=== PATIENT | male | born 1955 | race Caucasian/White ===

== ENCOUNTER 2016-10-24 12:55 | Inpatient (IN) ==
--- NOTE | 2016-10-23 20:38 | Discharge Summary ---
<Rama Cruz - Last Filed: 10/23/16 20:36> Date of Encounter: 10/23/16 - Discharge Diagnosis (1) Arthritis of right hip Priority: Primary Status: Acute (2) HTN (hypertension) Priority: Secondary Status: Chronic Qualifiers: Hypertension type: essential hypertension Qualified Code(s): I10 - Essential (primary) hypertension (3) HLD (hyperlipidemia) Priority: Secondary Status: Chronic Qualifiers: Hyperlipidemia type: unspecified Qualified Code(s): E78.5 - Hyperlipidemia , unspecified (4) BPH (benign prostatic hyperplasia) Priority: Secondary Status: Chronic Qualifiers: Prostatic enlargement morphology: unspecified morphology Lower urinary tract symptom presence: presence of symptoms unspecified Qualified Code(s): N40.0 - Benign prostatic hyperplasia without lower urinary tract symptoms - Discharge Medications Home Medications: DiphenhydraMINE [Benadryl] 50 mg PO HS PRN 05/27/15 [History] Lisinopril [Zestril] 10 mg PO HS 05/27/15 [History] Pravastatin Sodium [Pravachol] 40 mg PO HS 05/27/15 [History] Aspirin Enteric Coated [Aspirin EC] 325 mg PO DAILY #21 tablet. 10/23/16 [Rx] OxyCODONE Immed Rel [Roxicodone 5 MG] 5 - 10 mg PO Q6HR PRN #40 tablet 10/23/16 [Rx] Aspirin [Lo-Dose Aspirin EC] 81 mg PO HS 10/24/16 [History] Eletriptan HBr [Relpax] 20 mg PO DAILY PRN 10/24/16 [History] Hydrochlorothiazide [Microzide] 12.5 mg PO HS 10/24/16 [History] Allergies/Adverse Reactions: Allergies No Known Allergies Allergy (Verified 10/24/16 13:52) Primary care physician: Nighat David CNP - Patient Status Disposition: Home, Self-Care Condition: Good - Discharge Instructions Follow Up With: Nighat David CNP [Primary Care Provider] - - Hospital Course Hospital course: Mr. Bermudez is a 61 year old male - Time Spent with Patient Total time spent providing and/or coordinating discharge services: <Eben Ho - Last Filed: 10/25/16 06:46> Date of Encounter: 10/25/16 Time of Encounter: 06:45 - Discharge Diagnosis (1) HTN (hypertension) Status: Chronic Qualifiers: Hypertension type: essential hypertension Qualified Code(s): I10 - Essential (primary) hypertension (2) Arthritis of right hip Priority: Primary Status: Acute (3) HLD (hyperlipidemia) Priority: Secondary Status: Chronic Qualifiers: Hyperlipidemia type: unspecified Qualified Code(s): E78.5 - Hyperlipidemia , unspecified (4) BPH (benign prostatic hyperplasia) Priority: Secondary Status: Chronic Qualifiers: Prostatic enlargement morphology: unspecified morphology Lower urinary tract symptom presence: presence of symptoms unspecified Qualified Code(s): N40.0 - Benign prostatic hyperplasia without lower urinary tract symptoms Primary care physician: Nighat David CNP - Patient Status Functional capacity at discharge: uses cane/walker Overall status at discharge: patient is progressing back to baseline - Hospital Course Hospital course: Mr. Bermudez is a 61 year old male The patient had an uneventful postoperative course. They received antibiotics and physical therapy and were discharged in stable condition. There will follow -up in the office in 2 weeks. Aspirin DVT prophylaxis - Time Spent with Patient Total time spent providing and/or coordinating discharge services:
--- NOTE | 2016-10-24 13:16 | History & Physical Report ---
Date of Encounter: 10/24/16 Time of Encounter: 13:16 24 Hour HP Update - Instructions Instructions: If the History and Physical is less than 30 days old and was completed prior to A.M. admission and or procedure and has NOT been updated on calendar day of procedure please complete this update prior to performing procedure. - Update Patient reports changes in Medical Condition: No Changes in examination, assessment, or condition: No Changes in Medication: No Preop tests/diagnostics Reviewed: Yes Surgery Remains Indicated: Yes Consent for Planned Operative Procedure(s) Verified: Yes - Pre-Operative Checklist Preoperative Checklist Indicated: No Prophylactic Antibiotic Ordered: Yes Is VTE Prophylaxis Indicated?: Yes
[2016-10-24] MEDS ORDERED: Famotidine 20 MG/2 ML VIAL IVP ONE (13:23)
[2016-10-24] MEDS ORDERED: Gabapentin 300 MG CAPSULE PO ONE (13:24)
[2016-10-24] MEDS ORDERED: CeFAZolin Pre 2,000 MG/100 ML 2,000 MG/100 ML BAG IVPB ONE (13:24)
[2016-10-24] MEDS ORDERED: Ringers Solution, Lactated 1,000 ML IVC SCH ×2 (13:30→18:12)
[2016-10-24] MEDS ORDERED: *HR* FentaNYL (PF) 100 MCG/2 ML VIAL ONE ×3 (13:38→15:52)
[2016-10-24] MEDS ORDERED: *HR* Midazolam HCl 2 MG/2 ML VIAL ONE (13:39)
[2016-10-24] MEDS ORDERED: *HR* Propofol 200 MG/20 ML VIAL IVP ONE (13:39)
[2016-10-24] MEDS ORDERED: Dexamethasone 4 MG/ML VIAL ONE (13:40)
[2016-10-24] MEDS ORDERED: Ondansetron 4 MG/2 ML VIAL ONE (13:40)
[2016-10-24] MEDS ORDERED: *HR* Succinylcholine 200 MG/10 ML VIAL IVP ONE (13:40)
[2016-10-24] MEDS ORDERED: Lidocaine -MPF 2% 2 ML VIAL ONE ×2 (13:40→15:33)
--- NOTE | 2016-10-24 13:54 | Anesthesia Evaluation PreOp ---
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 10/23/16 [Rx] OxyCODONE Immed Rel [Roxicodone 5 MG] 5 - 10 mg PO Q6HR PRN #40 tablet 10/23/16 [Rx] Allergies No Known Allergies Allergy (Verified 10/24/16 13:52) - Meds/Allergy Pre-op Review Medications Reviewed: Yes Allergies Reviewed: Yes Beta Blockers on Current Med List: No Anesthesia Results - Labs Laboratory Tests 10/10/16 10/10/16 09:04 09:04 Hgb 14.2 Hct 41.1 Plt Count 202 Sodium 138 Potassium 4.0 BUN 15 Creatinine 0.83 - Imaging EKG: report reviewed (Sinus Tach Rt BBB) Anesthesia Exam O2 Sat Height 1.82 m Height 1.82 m Height 1.82 m Weight 111.811 kg Weight 111.811 kg Weight 111.811 kg O2 Sat by Pulse Oximetry 96 Vital Signs Temp Pulse Resp BP Pulse Ox 98.6 F 97 18 149/94 96 10/24/16 13:13 10/24/16 13:13 10/24/16 13:13 10/24/16 13:13 10/24/16 13:13 Height: 5'11 Weight: 246 lbs NPO (# of Hours): MN Pain Scale: 0 - HEENT Pupil (Motor): Pupils equal, EOMI Mallampati: II Teeth: Normal Oral Opening: Greater than 3 - TURBINE ASSEMBLER LOC: Oriented TURBINE ASSEMBLER Motor: Normal RUE, Normal LUE, Normal RLE, Normal LLE, Normal Face TURBINE ASSEMBLER Sensory: Normal: RUE, LUE, RLE, LLE, Face - Cardiac Rhythm: Regular Murmur: None JVD: No Carotid Bruit: No - Pulmonary Breath Sounds: bilateral Clear Respiratory Effort: Symmetrical Anesthesia Assess/Plan ASA Score: 2 Modified Farrah Scale for Level of Consciousness: Cooperative, oriented, and tranquil Anesthetic Plan: General, Regional Monitoring Plan: Standard Monitors Recovery Plan: PACU (Discussed GA and RA, agrees to proceed)
[2016-10-24] MEDS ORDERED: *HR* Promethazine 25 MG/ML VIAL IVP PRN (14:03)
--- NOTE | 2016-10-24 14:58 | Anesthesia Procedures ---
Date of Encounter: 10/24/16 Time of Encounter: 14:57 Procedures: Anesthesia - Nerve Block Procedure Date: 10/24/16 Time: 14:57 Allergies/Adv Reactions: nka Surgical Procedure: right ANGUS Checklist: Correct Patient Identifier, Correct procedure, History checked Correct side: Right Blood Thinner: No Monitor Applied: EKG, BP, Pulse Oximetry Supplemental Oxygen via Nasal Cannula (L/min): 2 Sedation: Versed (mg): 2 Sedation: Fentanyl (mcg): 100 Indication: Post Op Analgesia Pre-op Neuro Deficits: No Block Type: Other (fascia iliaca block) Catheter placed: No Sterile Technique: Yes Ultrasound used: Yes Anatomy identified: Yes Visual spread of Local: Yes Neuro Stimulation: No Blood on Needle Aspiration: No Smooth Injection of Local: Yes Pain with Injection of Local: No Prep: Chlorhexadine Needle: 22 x 50 mm Stimuplex Local: Other (0.25% bupivacaine) Volume (cc): 60 Number of Attempts: 1 Complications: None/effective block Vitals: Vital Signs/O2 Sat/Glucose, Most Recent Temp Pulse Resp BP Pulse Ox 98.6 F 87 16 121/66 96 10/24/16 14:48 10/24/16 14:49 10/24/16 14:49 10/24/16 14:49 10/24/16 14:49
--- NOTE | 2016-10-24 16:29 | Orthopedic Operative Note ---
Date of procedure: 10/24/16 Pre-op diagnosis: Right hip arthritis Post-op diagnosis: same Procedure: Procedure: Right Total Hip Replacment Estimated blood loss: 300 cc Hardware: Metal and polyethylene replacement. Biomet DM Cup: 54 G7 fin cup Femoral 14 size echo full profile lateralized stem Head: 0 head with Libby Procedural Notes: Grade 3 arthritic changes femoral head grade 4 arthritic changes acetabular socket. Operative procedure: The patient was brought to the operating room and placed on the operating room table. After general anesthesia was administered the patient was placed in the lateral decubitus position with the operative leg up. All pressure points were padded appropriately and the head was stabilized in the neutral position. The operative extremity was prepped and draped in the sterile surgical fashion patient received IV antibiotic prior to skin incision. A standard posterior approach is made to the operative hip, the incision was made through the skin and subcutaneous tissue hemostasis was obtained with Bovie cautery. Using careful sharp dissection the fascia was identified and incised exposing the external rotators. The external rotators were released off the greater trochanter and tagged with #2 FiberWire suture. The capsule was T'd open and the hip was brought into internal rotation. Patient noted to have grade 3 arthritic changes femoral head. The femoral neck cut was made at the appropriate level. An anterior capsulotomy was performed for the anterior retractor. Soft tissues removed from the acetabulum. Patient noted to have grade 4 arthritic changes acetabulum. Acetabulum was first reamed medially, and then reamed in 15 degrees of anteversion and 45 degrees off the horizontal. It was reamed up to the appropriate size 54 The appropriate-sized 54 acetabular cup was impacted in place in 15 degrees of anteversion and 45 degrees off the horizontal. This had good fit and fixation. The hip was brought back in to internal rotation and prepared with the picker box operator followed by the canal finder followed by broaching process in 20 degrees anteversion. It was broached up to the appropriate size 14 The femoral implant was impacted in place in 20 degrees of anteversion. Trial reduction found the hip to be stable with 0 head and Libby. The trials were removed and the real implants were impacted in place. The hip was reduced, patient had apparent equal leg lengths. The hip had excellent stability with forward flexion to 90 degrees adduction of 30 degrees and internal rotation of 60 degrees. The hip had no shuck. The hips after 2 minutes with a Betadine saline solution. It was irrigated out with 2 L of pulse irrigation. The external rotators were reattached to drill holes in the greater trochanter. Fascia was closed with a running #2 PDS suture. The deep tissue was irrigated and closed deep with #1 PDS suture superficially with 0 PDS suture and skin was closed with Dermabond and skin joey. The patient was placed in a sterile dressing and abduction pillow. The patient was extubated and transferred to the recovery room in stable condition. Anesthesia: KAL Surgeon: Eben Ho Distribution Superintendent: Rama Cruz Condition: stable Disposition: PACU
[2016-10-24] MEDS ORDERED: EPHEDrine 50 MG/ML VIAL ONE (16:33)
[2016-10-24] MEDS ORDERED: *HR* HYDROmorphone (PF) 1 MG/ML SYRINGE IVP PRN ×2 (16:44→18:12)
[2016-10-24] MEDS: *HR* HYDROmorphone (PF) 1 MG/ML SYRINGE IVP PRN ×3 (17:28→17:38)
[2016-10-24] MEDS ORDERED: *HR* Enoxaparin 30 MG/0.3 ML SYRINGE SQ SCH (18:00)
[2016-10-24] MEDS ORDERED: MOM Conc 10 ML UD.LIQ PO PRN (18:12)
[2016-10-24] MEDS ORDERED: Ondansetron 4 MG/2 ML VIAL IVP PRN (18:12)
[2016-10-24] MEDS ORDERED: *HR* OxyCODONE Immed Rel 5 MG TABLET PO PRN (18:12)
[2016-10-24] MEDS ORDERED: Sennosides 8.6 MG TABLET PO PRN (18:12)
[2016-10-24] MEDS ORDERED: Temazepam 15 MG CAPSULE PO PRN (18:12)
[2016-10-24] MEDS ORDERED: (Eletriptan Hbr [Relpax] 20 MG) PO PRN (18:12)
[2016-10-24] MEDS ORDERED: Naloxone 0.4 MG/ML INJ IVP PRN (18:12)
--- NOTE | 2016-10-24 19:00 | Anesthesia Evaluation Post Op ---
Date of Encounter: 10/24/16 Time of Encounter: 17:30 - Vital Signs Vital Signs: Vital Signs/O2 Sat/Glucose, Most Current Temp Pulse Resp BP Pulse Ox 10/24/16 17:36 85 18 154/95 98 10/24/16 17:26 97.1 F L 87 18 141/98 96 10/24/16 17:16 86 18 133/89 98 10/24/16 17:06 93 20 125/85 95 10/24/16 16:56 97.6 F 88 24 142/93 98 10/24/16 15:20 84 18 117/82 97 10/24/16 15:07 86 16 126/81 97 - Lungs Lungs: Clear Ascult./Percussion - Airway Airway: Non-obstructed - Cardiovascular Regular Rate - Mental Status Mental Status: Alert & Oriented, Answers Appropriately - Pain Pain Scale: 5 Pain Scale used: Numeric (1 - 10) - Nausea Vomiting Nausea Vomiting: Not Present - Hydration Hydration: Ice chips - Discharge PostOp Status: Transfer Patient to floor Anes Supervising Prov Stmt: Pt seen/evaluated, VSS and pt has met criteria for discharge to home. - MD Rahul
[2016-10-24 19:03] LABS: Hematocrit 40.1 % (37.5-50.1); Hemoglobin 13.2 g/dL (12.9-16.9)
[2016-10-24] MEDS: Ascorbic Acid 500 MG TABLET PO SCH (19:16)
[2016-10-24] MEDS: *HR* OxyCODONE Immed Rel 5 MG TABLET PO PRN ×2 (19:17→23:27)
[2016-10-24] MEDS: hydroCHLOROthiazide 25 MG TABLET PO SCH (22:15)
[2016-10-24] MEDS: Aspirin Enteric Coated 81 MG Tablet PO SCH (22:19)
[2016-10-24] MEDS: ceFAZolin 2,000 MG in D5% in Water 100 ML IVPB SCH (23:28)
[2016-10-25] MEDS: *HR* OxyCODONE Immed Rel 5 MG TABLET PO PRN ×4 (04:49→21:19)
[2016-10-25 05:51] LABS: Hematocrit 38.9 % (37.5-50.1); Hemoglobin 13.4 g/dL (12.9-16.9)
[2016-10-25 06:03] LABS: BUN/Creatinine Ratio 16 (6-26); Blood Urea Nitrogen 14 mg/dL (8-26); Carbon Dioxide 22 mEq/L (19-29); Chloride 100 mEq/L (98-109); Glucose 181 mg/dL (70-99); Osmolality,Calculated 279 (280-300); Potassium 4.4 mEq/L (3.5-4.5); Sodium 132 mEq/L (136-145); eGFR For African Americans > 60 (> 60); eGFR For Non-African Americans > 60 (> 60)
--- NOTE | 2016-10-25 06:47 | Orthopedics Progress Note ---
Date of Encounter: 10/25/16 Time of Encounter: 06:46 - Assessment and Plan (1) HTN (hypertension) Current Visit: Yes Status: Chronic Qualifiers: Hypertension type: essential hypertension Qualified Code(s): I10 - Essential (primary) hypertension (2) Arthritis of right hip Current Visit: Yes Status: Acute (3) HLD (hyperlipidemia) Current Visit: Yes Status: Chronic Qualifiers: Hyperlipidemia type: unspecified Qualified Code(s): E78.5 - Hyperlipidemia , unspecified (4) BPH (benign prostatic hyperplasia) Current Visit: Yes Status: Chronic Qualifiers: Prostatic enlargement morphology: unspecified morphology Lower urinary tract symptom presence: presence of symptoms unspecified Qualified Code(s): N40.0 - Benign prostatic hyperplasia without lower urinary tract symptoms Subjective Interval history: Patient was seen this morning doing well without complaints. Afebrile vital signs stable. Operative extremity: Neurovascularly intact Dressing clean dry and intact Calves nontender Assessment and plan: Continue with postoperative care Hematocrit 38 discharged today Objective Vital signs: Vital Signs Temp Pulse Resp BP Pulse Ox 10/25/16 04:57 99.2 F 106 16 132/84 95 10/24/16 23:05 98.8 F 101 18 154/97 97 10/24/16 20:35 98.3 F 102 18 140/92 97 10/24/16 19:35 98.7 F 100 14 141/92 98 10/24/16 19:05 98.3 F 94 16 147/94 97 10/24/16 18:34 98.8 F 89 16 155/95 95 10/24/16 17:57 97.7 F 91 18 155/97 98 10/24/16 17:46 88 20 146/98 98 10/24/16 17:36 85 18 154/95 98 10/24/16 17:26 97.1 F L 87 18 141/98 96 10/24/16 17:16 86 18 133/89 98 10/24/16 17:06 93 20 125/85 95 10/24/16 16:56 97.6 F 88 24 142/93 98 10/24/16 15:20 84 18 117/82 97 10/24/16 15:07 86 16 126/81 97 10/24/16 14:49 87 16 121/66 96 10/24/16 14:48 98.6 F 97 18 149/94 96 10/24/16 13:13 98.6 F 97 18 149/94 96 Intake and Output 10/24/16 10/24/16 10/25/16 15:59 23:59 07:59 Intake Total 160 / 160 100 / 100 Output Total 750 / 750 600 / 600 Balance -590 / -590 -500 / -500 Intake: IV Fluids 100 / 100 Ancef 2,000 MG In 100 / 100 Dextrose 5% 100 ML @ 200 mls/hr IVPB Q8HR DULCE Rx#: [id number] Oral 160 / 160 Output: Urine 450 / 450 600 / 600 Estimated Blood Loss 300 / 300 Other: # Voids 1 # Bowel Movements 0 Weight 111.811 kg - Labs CBC & BMP: 10/25/16 05:22 10/25/16 05:22 Labs: Abnormal lab results Sodium 132 mEq/L (136-145) L 10/25/16 05:22 Glucose 181 mg/dL (70-99) H 10/25/16 05:22 Calculated Osmolality 279 (280-300) L 10/25/16 05:22 - VTE Documentation of Mechanical Device: Venous foot pump, device Consult Discharge Plan - Plan Referrals: Nighat David, MARKETING SENIOR RECRUITER [Primary Care Provider] -
[2016-10-25] MEDS: Multivit/Ca/Min/Fe/FA 1 TAB TABLET PO SCH (09:02)
[2016-10-25] MEDS: Ascorbic Acid 500 MG TABLET PO SCH ×2 (09:02→16:54)
[2016-10-25] MEDS: ceFAZolin 2,000 MG in D5% in Water 100 ML IVPB SCH (10:46)
[2016-10-25] MEDS: *HR* Enoxaparin 30 MG/0.3 ML SYRINGE SQ SCH (16:55)
[2016-10-25] MEDS: hydroCHLOROthiazide 25 MG TABLET PO SCH (21:20)
[2016-10-25] MEDS: Aspirin Enteric Coated 81 MG Tablet PO SCH (21:20)
[2016-10-26] MEDS: *HR* OxyCODONE Immed Rel 5 MG TABLET PO PRN ×4 (02:01→20:02)
[2016-10-26 04:56] LABS: Hematocrit 36.1 % (37.5-50.1)
[2016-10-26 05:12] LABS: BUN/Creatinine Ratio 18 (6-26); Blood Urea Nitrogen 15 mg/dL (8-26); Calcium 8.9 mg/dL (8.6-10.8); Carbon Dioxide 24 mEq/L (19-29); Chloride 97 mEq/L (98-109); Glucose 146 mg/dL (70-99); Osmolality,Calculated 273 (280-300); Potassium 4.1 mEq/L (3.5-4.5); Sodium 130 mEq/L (136-145); eGFR For African Americans > 60 (> 60); eGFR For Non-African Americans > 60 (> 60)
[2016-10-26] MEDS: *HR* Enoxaparin 30 MG/0.3 ML SYRINGE SQ SCH ×2 (06:11→18:23)
--- NOTE | 2016-10-26 08:34 | Orthopedics Progress Note ---
Date of Encounter: 10/26/16 Time of Encounter: 08:33 - Assessment and Plan (1) HTN (hypertension) Current Visit: Yes Status: Chronic Qualifiers: Hypertension type: essential hypertension Qualified Code(s): I10 - Essential (primary) hypertension (2) Arthritis of right hip Current Visit: Yes Status: Acute (3) HLD (hyperlipidemia) Current Visit: Yes Status: Chronic Qualifiers: Hyperlipidemia type: unspecified Qualified Code(s): E78.5 - Hyperlipidemia , unspecified (4) BPH (benign prostatic hyperplasia) Current Visit: Yes Status: Chronic Qualifiers: Prostatic enlargement morphology: unspecified morphology Lower urinary tract symptom presence: presence of symptoms unspecified Qualified Code(s): N40.0 - Benign prostatic hyperplasia without lower urinary tract symptoms Subjective Interval history: Patient was seen this morning doing well without complaints. Afebrile vital signs stable. Operative extremity: Neurovascularly intact Dressing clean dry and intact Calves nontender Assessment and plan: Continue with postoperative care discharged today Objective Vital signs: Vital Signs Temp Pulse Resp BP Pulse Ox 10/26/16 07:18 99.1 F 112 16 125/82 95 10/26/16 05:40 99.6 F 10/25/16 23:11 99.9 F H 109 17 133/73 92 10/25/16 19:25 99.4 F 114 17 153/83 97 10/25/16 15:25 98.3 F 116 16 132/74 95 10/25/16 11:33 98.3 F 103 14 127/79 93 Intake and Output 10/25/16 10/26/16 10/26/16 23:59 07:59 15:59 Intake Total 1000 / 1000 Output Total 500 / 500 300 / 300 Balance 500 / 500 -300 / -300 Intake: IV Fluids 1000 / 1000 Output: Urine 500 / 500 300 / 300 - Labs CBC & BMP: 10/26/16 04:37 10/26/16 04:37 Labs: Abnormal lab results Hgb 12.0 g/dL (12.9-16.9) L 10/26/16 04:37 Hct 36.1 % (37.5-50.1) L 10/26/16 04:37 Sodium 130 mEq/L (136-145) L 10/26/16 04:37 Chloride 97 mEq/L (98-109) L 10/26/16 04:37 Glucose 146 mg/dL (70-99) H 10/26/16 04:37 Calculated Osmolality 273 (280-300) L 10/26/16 04:37 - VTE Documentation of Mechanical Device: Graduated compression elastic hosiery Consult Discharge Plan - Plan Additional Instructions: Discharge Instructions: Total Hip Replacement Please call [facility] ([phone]), your Primary Care Physician, or report to the Emergency Room if you have any of the following symptoms: Nausea, vomiting, fever greater that 101.5, swelling, chest pain, shortness of breath, increased pain/redness/drainage/odor for your incision site, numbness/ tingling, or any other concerning symptoms. ACTIVITY:Weight-bearing as tolerated for 8 weeks with hip dislocation precautions that physical therapy taught you. You may progress as tolerated under the guidance of your physical therapist. You do not need to sleep with a pillow between your legs. You can also seep on the operative side or on your stomach. MEDICATIONS: Upon discharge resume your home medications. Take all the medications as prescribed. Take a stool softener if taking narcotic pain medications. Stool softeners are only effective if you drink enough fluids. Drink 6-8 glass of water or fluids a day, unless this is not allowed for another health problem. Despite using stool softeners, if you haven't had a bowel movement in 3 days, please switch to a gentle laxative. Gentle laxatives are sold over the counter. You should have a bowel movement within 24 hours, if not call the office. You will be discharged from the hospital with a prescription for pain medication. You are encouraged to decrease the use of narcotic pain medication as tolerated. Should you require a refill, please call the office. [facility] prescribes narcotic pain medication for only 4-6 weeks after surgery. If you require pain medication beyond this time period, you may be referred to your Primary Care Physician or to the Pain Clinic for further evaluation. Plan ahead for refills on pain medication as many narcotics either need to be picked up at the office or mailed. It is best to call 48-72 hours in advance of needing a prescription refill so you don't run out of medication. To help control the post-operative pain, you may take NSAIDs (Aleve,Advil, Motrin, ibuprofen, naprosyn) or Tylenol as prescribed on the bottle in addition to the pain medication. ANTICOAGULATION (blood thinners): Continue your Aspirin, Lovenox or Coumadin as prescribed to help prevent a blood clot in the leg or in the lungs. As long as your incision remains dry and you tolerate the NSAIDs (Aleve, Advil, Motrin, Ibuprofen, Naprosyn), it is OK to use the NSAIDS while you are taking your anticoagulation medication. Should your incision start to drain, stop the NSAID and contact our office. Common symptoms of blood clot in the legs include: localized pain, swelling, calf tenderness, redness or discoloration of the skin. Blood clot in the lung symptoms include: shortness of breath, rapid pulse, sweating, and chest pain that worsens with deep breathing, coughing up blood, lightheadedness, feelings of anxiety. If you experience any of these symptoms notify your physician immediately, go to the emergency room, or if having trouble breathing, call 911. WOUND CARE: Leave the dressing on for 7 to 10days. You may change the dressing if it is saturated greater than 50%. Do not get the dressing wet at anytime. Wash your hands with antibacterial soap, rinse and dry prior to any wound care. If you have joey the visiting nurse or rehab facility can remove the stapes 10-14 days after surgery and place steri-strips across the wound. Leave the steri-strips in place until they fall off on their own. You may let water from the shower run on top of the steri-strips. If you do not have a visiting nurse or rehab facility, you will need to return to the office at 10-14 days for the joey to be removed. If you have itching or redness around the dressing call the office. FOLLOW-UP: Please follow up with your surgeon in the orthopedic clinic in 6 weeks from the day of surgery. If you have joey that need to be removed, you will need to come back to the office in 10-14 days from the day of surgery. Referrals: Nighat David, BRYCE [Primary Care Provider] -
[2016-10-26] MEDS: Multivit/Ca/Min/Fe/FA 1 TAB TABLET PO SCH (08:47)
[2016-10-26] MEDS: Ascorbic Acid 500 MG TABLET PO SCH ×2 (08:47→15:50)
--- NOTE | 2016-10-26 14:25 | Electrocardiograph Report ---
[place] [id number] Test Date: 2016-10-25 Pat Name: Christian Bermudez Department: 114 Room: [facility] Gender: M Director Surgical: : 1955 Requested By: Eben Ho Order Number: [id number] Reading MD: Prem Ohara MD Measurements Intervals Bradley Rate: 100 P: 42 NH: 161 QRS: -26 QRSD: 136 T: 9 QT: 352 QTc: 409 Interpretive Statements SINUS TACHYCARDIA BORDERLINE LEFT AXIS DEVIATION RBBB Electronically Signed On 10-26-2016 14:23:41 EDT by Prem Ohara MD
--- NOTE | 2016-10-26 15:13 | Cardiology Consult Note ---
<Boaz Cruz R - Last Filed: 10/26/16 15:10> Date of Encounter: 10/26/16 Time of Encounter: 15:10 Assessment and Plan (1) Sinus tachycardia Current Visit: Yes Status: Acute Sinus tach rate as high as 120 on bedside pusle ox. Pt not on telemetry, unable to review. Pt asymptomatic--denies dyspnea, chest pain or palpitations. In setting of post op hip replacement and low grade fever, temp as high as 99.9. Reviewed prior records--HR as high as 108 as outpt at PCP visit. EKGs reviewed--highest rate noted 113, Sinus tach. Will start pt on Toprol XL 25mg daily. Decrease Lisinopril to 5mg daily to allow BP room. Advised RN to put pt on telemetry until discharged. No further cardiac testing warranted as inpt. Anticipate sign off once seen and evaluated by Dr. Eaton. Will determine if follow-up with cardio is warranted or just PCP. (2) History of supraventricular tachycardia Current Visit: No Status: Resolved Pt reports hx of SVT s/p ablation in 2008. Reports LHC at that time without intervention. EKGs reviewed, no evidence of SVT, only sinus tach. Start low dose BB. Discussion w patient/family: The assessment and plan as outlined above was discussed with the patient and/or family members who expressed understanding and agreement. All questions were answered. Thank you for involving us in the care of your patient. Please call with any questions. I will discuss all the above with Dr. Eaton and make changes as necessary. History of Present Illness Consult date: 10/26/16 Requesting physician: Eben Ho Consult reason: sinus tachycardia Chief complaint: none History of present illness: Mr. Bermudez is a 61 year old male with PMH of HTN, SVT s/p ablation in 2008 at [facility] that presented to have hip replacement. He is post-op, now having sinus tachycardia with HR noted to be as high as 120 on vitals. However, pt is not on telemetry, so unable to review. EKGs reviewed. Highest HR on EKG 113. Pt reports HR at rest at home ~80. Reviewed past PCP visits and HR tends to be ~100 , highest 108 12/2015 at PCP visit. Pt denies palpitations, dizziness, lightheadedness, chest pain or dyspnea. Reports having LHC in 2008 at [facility] without significant blockages. Temp as high as 99.9. Reports episode of chills yesterday, none today. Past Med Surg Social Fam HX - Past Medical History Medical history: hyperlipidemia, hypertension, SVT Psychiatric history: no psych history - Past Surgical History Surgical History: vasectomy, other (ablation) - Social History Smoking Status: Never smoker Smokeless Tobacco Status: No Alcohol use: occasionally Drug use: none Medications and Allergies DiphenhydraMINE [Benadryl] 50 mg PO HS PRN 05/27/15 [History] Lisinopril [Zestril] 10 mg PO HS 05/27/15 [History] Pravastatin Sodium [Pravachol] 40 mg PO HS 05/27/15 [History] Aspirin Enteric Coated [Aspirin EC] 325 mg PO DAILY #21 tablet.dr 10/23/16 [Rx] OxyCODONE Immed Rel [Roxicodone 5 MG] 5 - 10 mg PO Q6HR PRN #40 tablet 10/23/16 [Rx] Aspirin [Lo-Dose Aspirin EC] 81 mg PO HS 10/24/16 [History] Eletriptan HBr [Relpax] 20 mg PO DAILY PRN 10/24/16 [History] Hydrochlorothiazide [Microzide] 12.5 mg PO HS 10/24/16 [History] Lisinopril [Zestril] 5 mg PO DAILY #30 tablet 10/26/16 [Rx] Metoprolol XL (24 HR) Succ [Toprol XL] 25 mg PO DAILY #30 tab.er.24h 10/26/16 [ Rx] Allergies No Known Allergies Allergy (Verified 10/24/16 13:52) All Systems Review: A 10-system review of systems was performed and is negative for pertinent findings except as documented above in the HPI. - Constitutional Constitutional: chills Physical Examination Vital Signs, Last 4 Hours Temp Pulse Resp BP Pulse Ox 10/26/16 15:01 99.1 F 112 14 127/78 95 Vital Signs Temp Pulse Resp BP Pulse Ox 10/26/16 15:01 99.1 F 112 14 127/78 95 10/26/16 11:03 98.7 F 112 14 136/79 96 10/26/16 07:18 99.1 F 112 16 125/82 95 10/26/16 05:40 99.6 F 10/25/16 23:11 99.9 F H 109 17 133/73 92 10/25/16 19:25 99.4 F 114 17 153/83 97 10/25/16 15:25 98.3 F 116 16 132/74 95 Intake and Output 10/25/16 10/26/16 10/26/16 23:59 07:59 15:59 Intake Total 1000 / 1000 Output Total 500 / 500 300 / 300 725 / 725 Balance 500 / 500 -300 / -300 -725 / -725 Intake: IV Fluids 1000 / 1000 Output: Urine 500 / 500 300 / 300 725 / 725 General: Conversant, No Apparent Distress HEENT: Atraumatic, Normocephaly, Mucus Membranes Moist Neck: No JVD, Normal carotid pulses Cardiac: Reg Rate and Rhythm, Normal S1 and S2, No Murmur Lungs: Normal Breath Sounds, No Wheeze, Rales, Rhonchi Neuro: Alert and responsive, No focal deficits noted Abdomen: Soft, Non-Tender Skin: No rashes noted on visualized skin Musculoskeletal: No Chest Wall Tenderness Extremities: No Clubbing, No Cyanosis, No Edema, Normal Pulses Results 10/26/16 04:37 10/26/16 04:37 Lab Results 10/26/16 10/26/16 04:37 04:37 Hgb 12.0 L Hct 36.1 L Sodium 130 L Potassium 4.1 Chloride 97 L Carbon Dioxide 24 BUN 15 Creatinine 0.83 Glucose 146 H Calcium 8.9 Short CBC 10/26/16 Range/Units 04:37 Hgb 12.0 L (12.9-16.9) g/dL Hct 36.1 L (37.5-50.1) % BMP 10/26/16 Range/Units 04:37 Sodium 130 L (136-145) mEq/L Potassium 4.1 (3.5-4.5) mEq/L Chloride 97 L (98-109) mEq/L Carbon Dioxide 24 (19-29) mEq/L BUN 15 (8-26) mg/dL Creatinine 0.83 (0.72-1.25) mg/dL Glucose 146 H (70-99) mg/dL Calcium 8.9 (8.6-10.8) mg/dL Active Medications Ascorbic Acid (Vitamin C) 500 mg PO BIDWM [facility] Stop: 04/25/17 18:13 Last Admin: 10/26/16 08:47 Dose: 500 mg Aspirin (Aspirin Ec) 81 mg PO HS [facility] Stop: 04/25/17 21:01 Last Admin: 10/25/16 21:20 Dose: 81 mg Diphenhydramine HCl (Benadryl) 50 mg PO HS PRN PRN Reason: Sleep Docusate Sodium (Colace) 100 mg PO BID [facility] PRN Reason: Protocol Stop: 04/25/17 21:01 Last Admin: 10/26/16 08:47 Dose: 100 mg Enoxaparin Sodium (Lovenox) 30 mg SQ Q12HR D[facility]CE PRN Reason: Protocol Stop: 04/25/17 18:01 Last Admin: 10/26/16 06:11 Dose: 30 mg Ferrous Sulfate (Ferrous Sulfate) 325 mg PO BIDWM [facility] Stop: 04/25/17 18:13 Last Admin: 10/26/16 08:47 Dose: 325 mg Hydrochlorothiazide (Hydrochlorothiazide) 12.5 mg PO HS [facility] Stop: 04/25/17 21:01 Last Admin: 10/25/16 21:20 Dose: 12.5 mg Hydromorphone HCl (Dilaudid) 1 mg IVP Q2H PRN PRN Reason: Moderate to Severe Pain Stop: 04/25/17 18:13 Last Admin: 10/25/16 01:54 Dose: 1 mg Lactated Ringer's (Lactated Ringers) 1,000 mls @ 75 mls/hr IVC .[id number] [facility] Stop: 04/25/17 18:13 Last Admin: 10/25/16 22:51 Dose: 75 mls/hr Lisinopril (Zestril) 5 mg PO HS DULCE PRN Reason: Protocol Stop: 04/27/17 21:01 Magnesium Hydroxide (Milk Of Magnesia Conc) 5 ml PO HS PRN PRN Reason: Constipation Stop: 04/25/17 18:13 Metoprolol Succinate (Toprol Xl) 25 mg PO DAILY [facility] Stop: 04/27/17 14:46 Multivitamins/Calcium (Thera M Plus) 1 tab PO DAILY [facility] PRN Reason: Protocol Stop: 04/26/17 09:01 Last Admin: 10/26/16 08:47 Dose: 1 tab Naloxone HCl (Narcan) 0.4 mg IVP Q2MIN PRN PRN Reason: SEE COMMENTS Stop: 04/25/17 18:13 (Eletriptan Hbr [ (Relpax] 20 Mg)) 20 mg PO DAILY PRN PRN Reason: Migraine Headache Ondansetron HCl (Zofran) 4 mg IVP Q6HR PRN PRN Reason: Nausea And Vomiting Stop: 04/25/17 18:13 Oxycodone HCl (Roxicodone) 5 mg PO Q4HR PRN PRN Reason: Mild pain 1-3 Stop: 04/25/17 18:13 Oxycodone HCl (Roxicodone) 10 mg PO Q4HR PRN PRN Reason: Moderate pain 4-6 Stop: 04/25/17 18:13 Last Admin: 10/26/16 09:49 Dose: 10 mg Senna (Senna) 17.2 mg PO HS PRN PRN Reason: Constipation Stop: 04/25/17 18:13 Simvastatin (Zocor) 20 mg PO HS DULCE Stop: 04/25/17 21:01 Last Admin: 10/25/16 21:20 Dose: 20 mg Temazepam (Restoril) 15 mg PO HS PRN; Protocol PRN Reason: Insomnia Stop: 04/25/17 18:13 - EKG Interpretation EKG results cardiology: personally reviewed (Sinus tach) Consult Discharge Plan - Plan Additional Instructions: Discharge Instructions: Total Hip Replacement Please call [facility] ([phone]), your Primary Care Physician, or report to the Emergency Room if you have any of the following symptoms: Nausea, vomiting, fever greater that 101.5, swelling, chest pain, shortness of breath, increased pain/redness/drainage/odor for your incision site, numbness/ tingling, or any other concerning symptoms. ACTIVITY:Weight-bearing as tolerated for 8 weeks with hip dislocation precautions that physical therapy taught you. You may progress as tolerated under the guidance of your physical therapist. You do not need to sleep with a pillow between your legs. You can also seep on the operative side or on your stomach. MEDICATIONS: Upon discharge resume your home medications. Take all the medications as prescribed. Take a stool softener if taking narcotic pain medications. Stool softeners are only effective if you drink enough fluids. Drink 6-8 glass of water or fluids a day, unless this is not allowed for another health problem. Despite using stool softeners, if you haven't had a bowel movement in 3 days, please switch to a gentle laxative. Gentle laxatives are sold over the counter. You should have a bowel movement within 24 hours, if not call the office. You will be discharged from the hospital with a prescription for pain medication. You are encouraged to decrease the use of narcotic pain medication as tolerated. Should you require a refill, please call the office. [facility] prescribes narcotic pain medication for only 4-6 weeks after surgery. If you require pain medication beyond this time period, you may be referred to your Primary Care Physician or to the Pain Clinic for further evaluation. Plan ahead for refills on pain medication as many narcotics either need to be picked up at the office or mailed. It is best to call 48-72 hours in advance of needing a prescription refill so you don't run out of medication. To help control the post-operative pain, you may take NSAIDs (Aleve,Advil, Motrin, ibuprofen, naprosyn) or Tylenol as prescribed on the bottle in addition to the pain medication. ANTICOAGULATION (blood thinners): Continue your Aspirin, Lovenox or Coumadin as prescribed to help prevent a blood clot in the leg or in the lungs. As long as your incision remains dry and you tolerate the NSAIDs (Aleve, Advil, Motrin, Ibuprofen, Naprosyn), it is OK to use the NSAIDS while you are taking your anticoagulation medication. Should your incision start to drain, stop the NSAID and contact our office. Common symptoms of blood clot in the legs include: localized pain, swelling, calf tenderness, redness or discoloration of the skin. Blood clot in the lung symptoms include: shortness of breath, rapid pulse, sweating, and chest pain that worsens with deep breathing, coughing up blood, lightheadedness, feelings of anxiety. If you experience any of these symptoms notify your physician immediately, go to the emergency room, or if having trouble breathing, call 911. WOUND CARE: Leave the dressing on for 7 to 10days. You may change the dressing if it is saturated greater than 50%. Do not get the dressing wet at anytime. Wash your hands with antibacterial soap, rinse and dry prior to any wound care. If you have joey the visiting nurse or rehab facility can remove the stapes 10-14 days after surgery and place steri-strips across the wound. Leave the steri-strips in place until they fall off on their own. You may let water from the shower run on top of the steri-strips. If you do not have a visiting nurse or rehab facility, you will need to return to the office at 10-14 days for the joey to be removed. If you have itching or redness around the dressing call the office. FOLLOW-UP: Please follow up with your surgeon in the orthopedic clinic in 6 weeks from the day of surgery. If you have joey that need to be removed, you will need to come back to the office in 10-14 days from the day of surgery. Referrals: Nighat David CNP [Primary Care Provider] - Prescriptions: Lisinopril [Zestril] 5 mg PO DAILY #30 tablet Metoprolol XL (24 HR) Succ [Toprol XL] 25 mg PO DAILY #30 tab.er.24h <Eliza Eaton - Last Filed: 10/26/16 17:41> Date of Encounter: 10/26/16 Assessment and Plan Discussion w patient/family: The assessment and plan as outlined above was discussed with the patient and/or family members who expressed understanding and agreement. All questions were answered. Thank you for involving us in the care of your patient. Please call with any questions. History of Present Illness History of present illness: Mr. Bermudez is a 61 year old male All Systems Review: A 10-system review of systems was performed and is negative for pertinent findings except as documented above in the HPI. Physical Examination Vital Signs, Last 4 Hours Temp Pulse Resp BP Pulse Ox 10/26/16 15:01 99.1 F 112 14 127/78 95 Results 10/26/16 04:37 10/26/16 04:37 Lab Results 10/26/16 10/26/16 04:37 04:37 Hgb 12.0 L Hct 36.1 L Sodium 130 L Potassium 4.1 Chloride 97 L Carbon Dioxide 24 BUN 15 Creatinine 0.83 Glucose 146 H Calcium 8.9 - Attending Attestation I examined this patient and my medical decision-making was reviewed with the OPERATING ROOM ORDERLY/PA/Advanced Practice Nurse/Resident Physician. I agree with the documented findings, disposition and treatment plan. 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 We were asked to evaluate him for sinus tachycardia. He has some complaints of discomfort but no serious concerns. Noted on his labs is hyponatremia with low plasma osmolality. He was receiving lacated ringers solution probably causing hyponatremia. Sinus tachycardia may be related but he is also post op and has a low grade temperature. We had already started him on 1L of normal saline. Performing urinalysis now would not be helpful. He does not appear volume overloaded. Will repeat labs tomorrow. He will also have an echo done and be placed on telemetry.
[2016-10-26] MEDS: 0.9 % Sodium Chloride 1,000 ML IVC SCH (15:50)
[2016-10-26] MEDS: Metoprolol XL (24 HR) Succ 25 MG TAB.ER.24H PO SCH (15:50)
[2016-10-26] MEDS: Aspirin Enteric Coated 81 MG Tablet PO SCH (21:53)
[2016-10-26] MEDS: hydroCHLOROthiazide 25 MG TABLET PO SCH (21:53)
[2016-10-27] MEDS: *HR* OxyCODONE Immed Rel 5 MG TABLET PO PRN ×2 (02:11→07:42)
[2016-10-27] MEDS: 0.9 % Sodium Chloride 1,000 ML IVC SCH (05:37)
[2016-10-27] MEDS: *HR* Enoxaparin 30 MG/0.3 ML SYRINGE SQ SCH (05:39)
[2016-10-27] MEDS: Multivit/Ca/Min/Fe/FA 1 TAB TABLET PO SCH (07:41)
[2016-10-27] MEDS: Ascorbic Acid 500 MG TABLET PO SCH (07:42)
[2016-10-27] MEDS: Metoprolol XL (24 HR) Succ 25 MG TAB.ER.24H PO SCH (07:42)
--- NOTE | 2016-10-27 08:21 | Orthopedics Progress Note ---
Date of Encounter: 10/27/16 Time of Encounter: 08:20 - Assessment and Plan (1) HTN (hypertension) Current Visit: Yes Status: Chronic Qualifiers: Hypertension type: essential hypertension Qualified Code(s): I10 - Essential (primary) hypertension (2) Arthritis of right hip Current Visit: Yes Status: Acute (3) HLD (hyperlipidemia) Current Visit: Yes Status: Chronic Qualifiers: Hyperlipidemia type: unspecified Qualified Code(s): E78.5 - Hyperlipidemia , unspecified (4) BPH (benign prostatic hyperplasia) Current Visit: Yes Status: Chronic Qualifiers: Prostatic enlargement morphology: unspecified morphology Lower urinary tract symptom presence: presence of symptoms unspecified Qualified Code(s): N40.0 - Benign prostatic hyperplasia without lower urinary tract symptoms Subjective Interval history: Patient was seen this morning doing well without complaints. Afebrile vital signs stable. Operative extremity: Neurovascularly intact Dressing clean dry and intact Calves nontender Assessment and plan: Continue with postoperative care She seen yesterday for sinus tachycardia treated by cardiology with toprolol discharge today stable condition Objective Vital signs: Vital Signs Temp Pulse Resp BP Pulse Ox 10/27/16 07:51 95 10/27/16 07:25 98.3 F 99 20 136/83 95 10/27/16 04:39 98.5 F 100 18 122/76 92 10/27/16 00:03 98.8 F 103 18 119/68 96 10/26/16 20:18 98.8 F 106 18 142/88 94 10/26/16 15:01 99.1 F 112 14 127/78 95 10/26/16 11:03 98.7 F 112 14 136/79 96 Intake and Output 10/26/16 10/27/16 10/27/16 23:59 07:59 15:59 Intake Total 625 / 625 1725 / 1725 Output Total 775 / 775 1525 / 1525 Balance -150 / -150 200 / 200 Intake: IV Fluids 1000 / 1000 0.9 % Sodium Chloride 1, 1000 / 1000 000 ML @ 75 mls/hr IVC . [id number] DULCE Rx#: [id number] Oral 625 / 625 725 / 725 Output: Urine 775 / 775 1525 / 1525 - Labs CBC & BMP: 10/26/16 04:37 10/26/16 04:37 Labs: Abnormal lab results Hgb 12.0 g/dL (12.9-16.9) L 10/26/16 04:37 Hct 36.1 % (37.5-50.1) L 10/26/16 04:37 Sodium 130 mEq/L (136-145) L 10/26/16 04:37 Chloride 97 mEq/L (98-109) L 10/26/16 04:37 Glucose 146 mg/dL (70-99) H 10/26/16 04:37 Calculated Osmolality 273 (280-300) L 10/26/16 04:37 - VTE Documentation of Mechanical Device: Venous foot pump, device Consult Discharge Plan - Plan Additional Instructions: Discharge Instructions: Total Hip Replacement Please call [facility] ([phone]), your Primary Care Physician, or report to the Emergency Room if you have any of the following symptoms: Nausea, vomiting, fever greater that 101.5, swelling, chest pain, shortness of breath, increased pain/redness/drainage/odor for your incision site, numbness/ tingling, or any other concerning symptoms. ACTIVITY:Weight-bearing as tolerated for 8 weeks with hip dislocation precautions that physical therapy taught you. You may progress as tolerated under the guidance of your physical therapist. You do not need to sleep with a pillow between your legs. You can also seep on the operative side or on your stomach. MEDICATIONS: Upon discharge resume your home medications. Take all the medications as prescribed. Take a stool softener if taking narcotic pain medications. Stool softeners are only effective if you drink enough fluids. Drink 6-8 glass of water or fluids a day, unless this is not allowed for another health problem. Despite using stool softeners, if you haven't had a bowel movement in 3 days, please switch to a gentle laxative. Gentle laxatives are sold over the counter. You should have a bowel movement within 24 hours, if not call the office. You will be discharged from the hospital with a prescription for pain medication. You are encouraged to decrease the use of narcotic pain medication as tolerated. Should you require a refill, please call the office. [facility] prescribes narcotic pain medication for only 4-6 weeks after surgery. If you require pain medication beyond this time period, you may be referred to your Primary Care Physician or to the Pain Clinic for further evaluation. Plan ahead for refills on pain medication as many narcotics either need to be picked up at the office or mailed. It is best to call 48-72 hours in advance of needing a prescription refill so you don't run out of medication. To help control the post-operative pain, you may take NSAIDs (Aleve,Advil, Motrin, ibuprofen, naprosyn) or Tylenol as prescribed on the bottle in addition to the pain medication. ANTICOAGULATION (blood thinners): Continue your Aspirin, Lovenox or Coumadin as prescribed to help prevent a blood clot in the leg or in the lungs. As long as your incision remains dry and you tolerate the NSAIDs (Aleve, Advil, Motrin, Ibuprofen, Naprosyn), it is OK to use the NSAIDS while you are taking your anticoagulation medication. Should your incision start to drain, stop the NSAID and contact our office. Common symptoms of blood clot in the legs include: localized pain, swelling, calf tenderness, redness or discoloration of the skin. Blood clot in the lung symptoms include: shortness of breath, rapid pulse, sweating, and chest pain that worsens with deep breathing, coughing up blood, lightheadedness, feelings of anxiety. If you experience any of these symptoms notify your physician immediately, go to the emergency room, or if having trouble breathing, call 911. WOUND CARE: Leave the dressing on for 7 to 10days. You may change the dressing if it is saturated greater than 50%. Do not get the dressing wet at anytime. Wash your hands with antibacterial soap, rinse and dry prior to any wound care. If you have joey the visiting nurse or rehab facility can remove the stapes 10-14 days after surgery [address] steri-strips across the wound. Leave the steri-strips in place until they fall off on their own. You may let water from the shower run on top of the steri-strips. If you do not have a visiting nurse or rehab facility, you will need to return to the office at 10-14 days for the joey to be removed. If you have itching or redness around the dressing call the office. FOLLOW-UP: Please follow up with your surgeon in the orthopedic clinic in 6 weeks from the day of surgery. If you have joey that need to be removed, you will need to come back to the office in 10-14 days from the day of surgery. Referrals: Nighat David CNP [Primary Care Provider] - Prescriptions: Lisinopril [Zestril] 5 mg PO DAILY #30 tablet Metoprolol XL (24 HR) Succ [Toprol XL] 25 mg PO DAILY #30 tab.er.24h
[2016-10-27 09:24] LABS: BUN/Creatinine Ratio 19 (6-26); Blood Urea Nitrogen 16 mg/dL (8-26); Calcium 9.1 mg/dL (8.6-10.8); Carbon Dioxide 26 mEq/L (19-29); Chloride 96 mEq/L (98-109); Glucose 203 mg/dL (70-99); Osmolality,Calculated 279 (280-300); Potassium 3.8 mEq/L (3.5-4.5); Sodium 131 mEq/L (136-145); eGFR For African Americans > 60 (> 60); eGFR For Non-African Americans > 60 (> 60)
[2016-10-27] MEDS ORDERED: Furosemide 40 MG/4 ML VIAL IVP ONE (09:39)
--- NOTE | 2016-10-27 10:24 | Cardiology Progress Note ---
Date of Encounter: 10/27/16 Time of Encounter: 10:26 Assessment and Plan (1) Sinus tachycardia Current Visit: Yes Status: Acute Sinus tach rate as high as 120 on tele. 24 hr tele AVG HR 103, SR. Pt asymptomatic--denies dyspnea, chest pain or palpitations. In setting of post op hip replacement and hyponatremia with low plasma osmolality. He was receiving lacated ringers solution probably causing hyponatremia. We had already started him on 1L of normal saline. Performing urinalysis now would not be helpful. He does not appear volume overloaded. Na and osmolality mildly improved today. Will stop IV fluids and give one time dose of 40mg IV Lasix, as volume overload from IV fluids is a possibility. Reviewed prior outpt records--HR as high as 108 as outpt at PCP visit. Continue Toprol XL 25mg daily. Echo EF 65%, no significant findings. Cardiology signing off. Reconsult PRN. Follow-up with PCP as outpt. (2) History of supraventricular tachycardia Current Visit: No Status: Resolved Pt reports hx of SVT s/p ablation in 2008. Reports LHC at that time without intervention. EKGs and tele reviewed, no evidence of SVT, only sinus tach. Started low dose BB. Discussion w patient/family: The assessment and plan as outlined above was discussed with the patient and/or family members who expressed understanding and agreement. All questions were answered. Thank you for involving us in the care of your patient. Please call with any questions. I will discuss all the above with Dr. Eaton and make changes as necessary. Subjective Principal diagnosis: S/P hip replacement, sinus tach Interval history: Pt denies any cardiac complaints this AM. Denies palpitations, dyspnea or chest pain. Sodium mildly improved--130 yesterday, 131 today. Calculated osmolality increased/improved today from 273 to 279. Echo resulted--EF 65%, normal diastolic function, normal RV structure and function, no significant valvular dysfunction. 24 hr tele AVG HR 103, sinus tach. Objective Vital Signs, Last 4 Hours Temp Pulse Resp BP Pulse Ox 10/27/16 07:51 95 10/27/16 07:25 98.3 F 99 20 136/83 95 Vital Signs Temp Pulse Resp BP Pulse Ox 10/27/16 07:51 95 10/27/16 07:25 98.3 F 99 20 136/83 95 10/27/16 04:39 98.5 F 100 18 122/76 92 10/27/16 00:03 98.8 F 103 18 119/68 96 10/26/16 20:18 98.8 F 106 18 142/88 94 10/26/16 15:01 99.1 F 112 14 127/78 95 10/26/16 11:03 98.7 F 112 14 136/79 96 Intake and Output 10/26/16 10/27/16 10/27/16 23:59 07:59 15:59 Intake Total 625 / 625 1725 / 1725 280 / 280 Output Total 775 / 775 1525 / 1525 150 / 150 Balance -150 / -150 200 / 200 130 / 130 Intake: IV Fluids 1000 / 1000 0.9 % Sodium Chloride 1, 1000 / 1000 000 ML @ 75 mls/hr IVC . [id number] [facility] Rx#: [id number] Oral 625 / 625 725 / 725 280 / 280 Output: Urine 775 / 775 1525 / 1525 150 / 150 Other: Meal Breakfast Percent of Meal Consumed 100% General: Conversant, No Apparent Distress HEENT: Atraumatic, Normocephaly, Mucus Membranes Moist Neck: No JVD, Normal carotid pulses Cardiac: Reg Rate and Rhythm, Normal S1 and S2, No Murmur Lungs: Normal Breath Sounds, No Wheeze, Rales, Rhonchi Neuro: Alert and responsive, No focal deficits noted Abdomen: Soft, Non-Tender Skin: No rashes noted on visualized skin Musculoskeletal: No Chest Wall Tenderness Extremities: No Clubbing, No Cyanosis, No Edema, Normal Pulses Results 10/26/16 04:37 10/27/16 09:05 Lab Results 10/27/16 09:05 Sodium 131 L Potassium 3.8 Chloride 96 L Carbon Dioxide 26 BUN 16 Creatinine 0.83 Glucose 203 H Calcium 9.1 BMP 10/27/16 Range/Units 09:05 Sodium 131 L (136-145) mEq/L Potassium 3.8 (3.5-4.5) mEq/L Chloride 96 L (98-109) mEq/L Carbon Dioxide 26 (19-29) mEq/L BUN 16 (8-26) mg/dL Creatinine 0.83 (0.72-1.25) mg/dL Glucose 203 H (70-99) mg/dL Calcium 9.1 (8.6-10.8) mg/dL Active Medications Ascorbic Acid (Vitamin C) 500 mg PO BIDWM [facility] Stop: 04/25/17 18:13 Last Admin: 10/27/16 07:42 Dose: 500 mg Aspirin (Aspirin Ec) 81 mg PO HS [facility] Stop: 04/25/17 21:01 Last Admin: 10/26/16 21:53 Dose: 81 mg Diphenhydramine HCl (Benadryl) 50 mg PO HS PRN PRN Reason: Sleep Docusate Sodium (Colace) 100 mg PO BID [facility] PRN Reason: Protocol Stop: 04/25/17 21:01 Last Admin: 10/27/16 07:42 Dose: 100 mg Enoxaparin Sodium (Lovenox) 30 mg SQ Q12HR [facility] PRN Reason: Protocol Stop: 04/25/17 18:01 Last Admin: 10/27/16 05:39 Dose: 30 mg Ferrous Sulfate (Ferrous Sulfate) 325 mg PO BIDWM [facility] Stop: 04/25/17 18:13 Last Admin: 10/27/16 07:42 Dose: 325 mg Hydrochlorothiazide (Hydrochlorothiazide) 12.5 mg PO HS [facility] Stop: 04/25/17 21:01 Last Admin: 10/26/16 21:53 Dose: 12.5 mg Hydromorphone HCl (Dilaudid) 1 mg IVP Q2H PRN PRN Reason: Moderate to Severe Pain Stop: 04/25/17 18:13 Last Admin: 10/25/16 01:54 Dose: 1 mg Lisinopril (Zestril) 5 mg PO HS [facility] PRN Reason: Protocol Stop: 04/27/17 21:01 Last Admin: 10/26/16 21:54 Dose: 5 mg Magnesium Hydroxide (Milk Of Magnesia Conc) 5 ml PO HS PRN PRN Reason: Constipation Stop: 04/25/17 18:13 Metoprolol Succinate (Toprol Xl) 25 mg PO DAILY [facility] Stop: 04/27/17 14:46 Last Admin: 10/27/16 07:42 Dose: 25 mg Multivitamins/Calcium (Thera M Plus) 1 tab PO DAILY [facility] PRN Reason: Protocol Stop: 04/26/17 09:01 Last Admin: 10/27/16 07:41 Dose: 1 tab Naloxone HCl (Narcan) 0.4 mg IVP Q2MIN PRN PRN Reason: SEE COMMENTS Stop: 04/25/17 18:13 (Eletriptan Hbr [ (Relpax] 20 Mg)) 20 mg PO DAILY PRN PRN Reason: Migraine Headache Ondansetron HCl (Zofran) 4 mg IVP Q6HR PRN PRN Reason: Nausea And Vomiting Stop: 04/25/17 18:13 Oxycodone HCl (Roxicodone) 5 mg PO Q4HR PRN PRN Reason: Mild pain 1-3 Stop: 04/25/17 18:13 Oxycodone HCl (Roxicodone) 10 mg PO Q4HR PRN PRN Reason: Moderate pain 4-6 Stop: 04/25/17 18:13 Last Admin: 10/27/16 07:42 Dose: 10 mg Senna (Senna) 17.2 mg PO HS PRN PRN Reason: Constipation Stop: 04/25/17 18:13 Simvastatin (Zocor) 20 mg PO HS [facility] Stop: 04/25/17 21:01 Last Admin: 10/26/16 21:53 Dose: 20 mg Temazepam (Restoril) 15 mg PO HS PRN; Protocol PRN Reason: Insomnia Stop: 04/25/17 18:13 - Imaging and Cardiology Echo: report reviewed - EKG Interpretation EKG results cardiology: other (24 hr tele AVG HR 103, SR.) - VTE Documentation of Mechanical Device: Venous foot pump, device Consult Discharge Plan - Plan Additional Instructions: Discharge Instructions: Total Hip Replacement Please call [facility] ([phone]), your Primary Care Physician, or report to the Emergency Room if you have any of the following symptoms: Nausea, vomiting, fever greater that 101.5, swelling, chest pain, shortness of breath, increased pain/redness/drainage/odor for your incision site, numbness/ tingling, or any other concerning symptoms. ACTIVITY:Weight-bearing as tolerated for 8 weeks with hip dislocation precautions that physical therapy taught you. You may progress as tolerated under the guidance of your physical therapist. You do not need to sleep with a pillow between your legs. You can also seep on the operative side or on your stomach. MEDICATIONS: Upon discharge resume your home medications. Take all the medications as prescribed. Take a stool softener if taking narcotic pain medications. Stool softeners are only effective if you drink enough fluids. Drink 6-8 glass of water or fluids a day, unless this is not allowed for another health problem. Despite using stool softeners, if you haven't had a bowel movement in 3 days, please switch to a gentle laxative. Gentle laxatives are sold over the counter. You should have a bowel movement within 24 hours, if not call the office. You will be discharged from the hospital with a prescription for pain medication. You are encouraged to decrease the use of narcotic pain medication as tolerated. Should you require a refill, please call the office. [facility] prescribes narcotic pain medication for only 4-6 weeks after surgery. If you require pain medication beyond this time period, you may be referred to your Primary Care Physician or to the Pain Clinic for further evaluation. Plan ahead for refills on pain medication as many narcotics either need to be picked up at the office or mailed. It is best to call 48-72 hours in advance of needing a prescription refill so you don't run out of medication. To help control the post-operative pain, you may take NSAIDs (Aleve,Advil, Motrin, ibuprofen, naprosyn) or Tylenol as prescribed on the bottle in addition to the pain medication. ANTICOAGULATION (blood thinners): Continue your Aspirin, Lovenox or Coumadin as prescribed to help prevent a blood clot in the leg or in the lungs. As long as your incision remains dry and you tolerate the NSAIDs (Aleve, Advil, Motrin, Ibuprofen, Naprosyn), it is OK to use the NSAIDS while you are taking your anticoagulation medication. Should your incision start to drain, stop the NSAID and contact our office. Common symptoms of blood clot in the legs include: localized pain, swelling, calf tenderness, redness or discoloration of the skin. Blood clot in the lung symptoms include: shortness of breath, rapid pulse, sweating, and chest pain that worsens with deep breathing, coughing up blood, lightheadedness, feelings of anxiety. If you experience any of these symptoms notify your physician immediately, go to the emergency room, or if having trouble breathing, call 911. WOUND CARE: Leave the dressing on for 7 to 10days. You may change the dressing if it is saturated greater than 50%. Do not get the dressing wet at anytime. Wash your hands with antibacterial soap, rinse and dry prior to any wound care. If you have joey the visiting nurse or rehab facility can remove the stapes 10-14 days after surgery and place steri-strips across the wound. Leave the steri-strips in place until they fall off on their own. You may let water from the shower run on top of the steri-strips. If you do not have a visiting nurse or rehab facility, you will need to return to the office at 10-14 days for the joey to be removed. If you have itching or redness around the dressing call the office. FOLLOW-UP: Please follow up with your surgeon in the orthopedic clinic in 6 weeks from the day of surgery. If you have joey that need to be removed, you will need to come back to the office in 10-14 days from the day of surgery. Referrals: Nighat David CNP [Primary Care Provider] - Prescriptions: Lisinopril [Zestril] 5 mg PO DAILY #30 tablet Metoprolol XL (24 HR) Succ [Toprol XL] 25 mg PO DAILY #30 tab.er.24h
[2016-10-27 10:52] VITALS: BP 145/84
--- NOTE | 2016-10-27 11:54 | Electrocardiograph Report ---
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
--- NOTE | 2016-10-27 17:29 | Electrocardiograph Report ---
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
== END 2016-10-27 11:43 | disposition home or self-care (01) | DRG 470 ==
LOC: SAMDAY 12:55 → 3NENU 18:01
PROVIDERS: ADMIT Orthopaedic Surgery; ATTEND Orthopaedic Surgery